=== PATIENT | male | born 1975 | race Hispanic/Latino ===

== ENCOUNTER → 2019-04-29 | Outpatient (CLI) | payer MEDICARE ==
--- NOTE | 2019-04-29 10:14 | Diagnostic Imaging Report ---
MRI of the right hand without contrast. History: Hand pain. Swelling. Injury. Dislocated fifth digit. Technique: Multiplanar multisequence MRI of the right hand without contrast. Comparison: None Findings: High-grade sprain/partial tear involving the capsular structures and collateral ligaments at the right fifth finger proximal interphalangeal joint with associated soft tissue edema. This is predominantly on the radial side of the joint and best seen on series 5 image 8 through 10. There is mild bone marrow edema in the proximal portion of the middle phalanx likely due to a contusion. No acute fracture, subluxation or avascular necrosis. The remainder of the visualized ligaments and tendons are intact. The visualized muscles are normal in size, signal intensity and morphology. The visualized neurovascular bundles are intact. Impression: High-grade sprain/partial tear involving the capsular structures and collateral ligaments at the right fifth finger proximal interphalangeal joint with associated soft tissue edema. Mild bone marrow edema in the proximal portion of the middle phalanx of the fifth finger likely due to a contusion. Signed by: Dr. Julien Urbina M.D. on 04/29/2019 10:11 AM
== END ==
LOC: MRI 08:30
PROVIDERS: ATTEND Plastic Surgery
DX: M79.644 Pain in right finger(s) (principal); M25.441 Effusion, right hand; Y93.67 Activity, basketball

== ENCOUNTER 2019-05-14 10:00 | Outpatient (RCR) | payer MEDICARE | END 2019-05-15 | LOC: OT 10:00 | PROVIDERS: ATTEND Plastic Surgery | DX: S62.646D Nondisplaced fracture of proximal phalanx of right little finger, subsequent encounter for fracture with routine healing (principal); S63.49 Traumatic rupture of other ligament of finger at metacarpophalangeal and interphalangeal joint; M25.641 Stiffness of right hand, not elsewhere classified; M25.441 Effusion, right hand; R27.9 Unspecified lack of coordination ==

== ENCOUNTER 2019-06-03 10:00 | Outpatient (RCR) | payer MEDICARE | END 2019-06-15 | LOC: OT 10:00 | PROVIDERS: ATTEND Plastic Surgery | DX: S62.646D Nondisplaced fracture of proximal phalanx of right little finger, subsequent encounter for fracture with routine healing (principal); S63.49 Traumatic rupture of other ligament of finger at metacarpophalangeal and interphalangeal joint; M25.641 Stiffness of right hand, not elsewhere classified; M25.441 Effusion, right hand; R27.9 Unspecified lack of coordination | CPT/HCPCS: 97139 ==

== ENCOUNTER → 2020-12-15 | Day surgery (SDC) | payer MEDICARE, OTHER ==
[2020-12-13 10:51] LABS: BASOPHILS # (AUTO) 0.1 (0.0-0.1); BASOPHILS % 0.8 % (0.0-1.0); EOSINOPHILS # (AUTO) 0.4 (0.0-0.4); EOSINOPHILS % 4.9 % (0.0-6.0); HEMATOCRIT 41.6 % (38.2-49.6); HEMOGLOBIN 14.7 g/dL (14.0-18.0); LYMPHOCYTES # (AUTO) 1.6 (1.0-3.2); LYMPHOCYTES % 22.4 % (18.0-39.1); MEAN CORPUSCULAR HEMOGLOBIN 31.9 pg (28-32); MEAN CORPUSCULAR HGB CONC 35.3 g/dL (31-35); MEAN CORPUSCULAR VOLUME 90.2 fL (81-99); MONOCYTES # (AUTO) 0.6 (0.2-0.8); MONOCYTES % 8.7 % (4.4-11.3); NEUTROPHILS # (AUTO) 4.4 (2.1-6.9); NEUTROPHILS % 62.6 % (38.7-80.0); PLATELET COUNT 228 x10e3/uL (140-360); RED BLOOD COUNT 4.61 x10e6/uL (4.3-5.7); RED CELL DISTRIBUTION WIDTH 12.9 % (11.7-14.4)
[2020-12-13 11:11] LABS: ALBUMIN 4.3 g/dL (3.5-5.0); ALBUMIN/GLOBULIN RATIO 1.1 (0.8-2.0); ANION GAP 17.8 mmol/L (8-16); CALCIUM 10.6 mg/dL (8.4-10.2); CREATININE, SERUM 1.45 mg/dL (0.72-1.25); POTASSIUM 3.8 mmol/L (3.5-5.1)
[~2020-12-15] MED LIST: ACETAMINOPHEN 1000 MG/100 ML 100 ML IV ONE; ATORVASTATIN CA20 MG PO; BUPIVACAINE 0.25% 30ML SDV ONE; BUPIVACAINE LIPOSOME/PF 266 MG/20 ML IJ ONE; HYDROCHLOROTHIA50 MG PO; LOSARTAN POTASS25 MG PO; METFORMIN HCL500 MG PO
[2020-12-15 10:10] VITALS: BP 146/97
== END | disposition home or self-care (01) ==
LOC: OR 06:54
PROVIDERS: ATTEND Surgery
DX: K42.9 Umbilical hernia without obstruction or gangrene (principal); G47.33 Obstructive sleep apnea (adult) (pediatric); F84.0 Autistic disorder; I10 Essential (primary) hypertension; E11.9 Type 2 diabetes mellitus without complications; Z01.810 Encounter for preprocedural cardiovascular examination; Z01.812 Encounter for preprocedural laboratory examination; Z20.822 Contact with and (suspected) exposure to COVID-19; Z79.84 Long term (current) use of oral hypoglycemic drugs
CPT/HCPCS: 36415 ×2; 49585; 80053; 82948; 85025; 93005; C1781; C9290; J0131; U0002

== ENCOUNTER → 2025-01-06 | Day surgery (SDC) | payer MEDICARE ==
[~2025-01-06] MED LIST changes: -ACETAMINOPHEN 1000 MG/100 ML 100 ML IV ONE; +AMLODIPINE BESY10 MG PO; -BUPIVACAINE 0.25% 30ML SDV ONE; -BUPIVACAINE LIPOSOME/PF 266 MG/20 ML IJ ONE; +CALCITRIOL0.25 MCG PO; +LIDOCAINE HCL 2% LOCAL INJ 5 ML SDV VIAL INJ ONE; +METOPROLOL SUCC25 MG PO; +PROPOFOL IV EMULSION 10 MG/ML 20 ML VIAL ONE
[2025-01-06] MEDS: LACTATED RINGER'S 1,000 ML ONE (09:01)
[2025-01-06 10:10] VITALS: BP 138/92; PULSE 69; RESP 16; TEMP 97.6; O2SAT 99
== END | disposition home or self-care (01) ==
LOC: OR 06:39
PROVIDERS: ATTEND Internal Medicine Gastroenterology
DX: Z12.11 Encounter for screening for malignant neoplasm of colon (principal); K63.5 Polyp of colon; K64.8 Other hemorrhoids; E11.9 Type 2 diabetes mellitus without complications; I10 Essential (primary) hypertension; E78.5 Hyperlipidemia, unspecified; Z78.9 Other specified health status; E66.01 Morbid (severe) obesity due to excess calories; F17.200 Nicotine dependence, unspecified, uncomplicated; Z01.810 Encounter for preprocedural cardiovascular examination; Z79.84 Long term (current) use of oral hypoglycemic drugs; Z79.899 Other long term (current) drug therapy; Z68.30 Body mass index [BMI] 30.0-30.9, adult; Z71.3 Dietary counseling and surveillance
CPT/HCPCS: 36415; 45385; 82948; 88305; 93005; J2003; J2704; J7121; 45378